=== PATIENT | male | born 1995 | race Caucasian/White ===

== ENCOUNTER 2022-04-20 14:40 | Emergency (ER) | payer SELFPAY ==
[~2022-04-20] VITALS: Ht 172.7 cm; Wt 90.7 kg
--- NOTE | 2022-04-20 14:45 | NUR ---
RECEVED PT 26 YRS MALE CAME LACERATION AND CUT ON LT MEDILE FINGER
[2022-04-20] MEDS ORDERED: TDAP [DIPH/PERTUSSIS/TET] 0.5 ML VIAL IM ONE ×2 (15:00→15:25)
[2022-04-20] MEDS ORDERED: LIDOCAINE HCL/PF 1% 30 ML VIAL TP ONE (15:00)
[2022-04-20] MEDS ORDERED: LIDOCAINE /MPF 1% VIAL 5 ML VIAL ONE (15:26)
[2022-04-20] MEDS ORDERED: IBUP-1955 PO (17:05)
[2022-04-20 17:12] VITALS: BP 135/66
--- NOTE | 2022-04-20 17:12 | NUR ---
Patient discharged to home in stable condition. Written and verbal after care instructions given. Patient verbalizes understanding of instruction.
== END 2022-04-20 17:12 | disposition home or self-care (01) ==
LOC: ER 14:45
DX: S61.213A Laceration without foreign body of left middle finger without damage to nail, initial encounter (principal); Z79.1 Long term (current) use of non-steroidal anti-inflammatories (NSAID); W29.8XXA Contact with other powered hand tools and household machinery, initial encounter; Y93.89 Activity, other specified; Y92.89 Other specified places as the place of occurrence of the external cause; Y99.8 Other external cause status
CPT/HCPCS: 99283; 12001; 90471; 90715; 73140; J3490 ×2; A6403